=== PATIENT | female | born 1945 | race Caucasian/White ===

== ENCOUNTER 2018-05-18 07:22 | Emergency (ER) | payer MEDICARE, OTHER ==
[2018-05-18 07:51] VITALS: BP 173/78
--- NOTE | 2018-05-18 07:52 | ED Physician Documentation ---
PD HPI SKIN - Stated complaint Stated Complaint: RASH ON BACK - Chief complaint Chief Complaint: General - History obtained from History obtained from: Patient - History of Present Illness Timing - onset: How many days ago (3-4) Timing - duration: Days Timing - details: Gradual onset (has pain in back and around to chest 3-4 days ago, which increased, then started with some rash in that area couple days ago. The rash has increased. It has stayed in local area. She does have some general malaise/myalgias.), Still present Location: Chest, Back (right sided back around to chest) Quality / character: Painful, Vesicular, Swelling. No: Crusted, Draining Associated symptoms: Myalgias. No: Fever, Headache, N/V/D Contributing factors: No: Recent illness Similar symptoms before: Has not had sx before Recently seen: Not recently seen Review of Systems Constitutional: reports: Myalgias. denies: Fever, Chills Nose: denies: Rhinorrhea / runny nose, Congestion Throat: denies: Sore throat Cardiac: denies: Palpitations, Pedal edema, Calf pain Respiratory: denies: Dyspnea, Cough GI: denies: Abdominal Pain, Nausea, Vomiting Skin: reports: Rash. denies: Abrasion (s) Musculoskeletal: denies: Neck pain, Back pain Neurologic: denies: Altered mental status, Headache PD PAST MEDICAL HISTORY - Past Medical History Cardiovascular: None Respiratory: None Neuro: None Endocrine/Autoimmune: None Derm: None - Present Medications Home Medications: Ambulatory Orders Medication Instructions Recorded Confirmed Amitriptyline HCl 50 mg PO QPM #30 tablet 05/18/18 Dexamethasone [Decadron] 4 mg PO DAILY #7 tablet 05/18/18 HYDROcod/ACETAM 5/325 [Easley 5/325] 1 tab PO Q6H PRN #25 tablet 05/18/18 Valacyclovir HCl [Valacyclovir] 1,000 mg PO TID #21 tablet 05/18/18 - Allergies Allergies/Adverse Reactions: Allergies Allergy/AdvReac Type Severity Reaction Status Date / Time Penicillins Allergy Rash Verified 05/18/18 07:52 Sulfa (Sulfonamide Allergy Rash Verified 05/18/18 07:51 Antibiotics) PD ED PE NORMAL - Vitals Vital signs reviewed: Yes - General General: Alert and oriented X 3, Well developed/nourished - Neck Neck: Supple, no meningeal sign, No adenopathy - Cardiac Cardiac: RRR, No murmur - Respiratory Respiratory: Clear bilaterally - Abdomen Abdomen: Soft, Non tender - Derm Derm: Normal color, Warm and dry, Other (right thoracic area at T6 level with right sided red-based, vesicular rash that extends in band around to midline front at lower sternal level. Very tender. No signs of purulence. No redness outside of that band area. No rash to the left. ) - Neuro Neuro: Alert and oriented X 3, No motor deficit, No sensory deficit, Normal speech Results - Vitals Vitals: Vital Signs - 24 hr 05/18/18 07:45 Temperature 36.6 C Heart Rate 88 Respiratory 16 Rate Blood Pressure 173/78 H O2 Saturation 100 Oxygen O2 Source Room air PD MEDICAL DECISION MAKING - ED course Complexity details: considered differential (rash classically c/w shingles swatch, withut signs of secondary infection), d/w patient - Sepsis Event Vital Signs: Vital Signs - 24 hr 05/18/18 07:45 Temperature 36.6 C Heart Rate 88 Respiratory 16 Rate Blood Pressure 173/78 H O2 Saturation 100 Oxygen O2 Source Room air Departure - Departure Disposition: 01 Home, Self Care Clinical Impression: Shingles outbreak Qualifiers: Herpes zoster complications: without complications Qualified Code(s): B02.9 - Zoster without complications Condition: Stable Record reviewed to determine appropriate education?: Yes Instructions: ED Shingles Prescriptions: Amitriptyline HCl 50 mg PO QPM #30 tablet Dexamethasone [Decadron] 4 mg PO DAILY #7 tablet HYDROcod/ACETAM 5/325 [Easley 5/325] 1 tab PO Q6H PRN #25 tablet PRN Reason: Pain Valacyclovir HCl [Valacyclovir] 1,000 mg PO TID #21 tablet Comments: Cleanse the rash area with soap and water daily or twice daily. It is okay to apply topical ointments. Radha acyclovir antiviral medicine 3 times a day for a week. Decadron steroid anti-inflammatory daily for a week. Amitriptyline nightly for several weeks to try to reduce the nerve irritation overall. Add Tylenol or hydrocodone if needed for pains. You can add naproxen or ibuprofen as well. This should peak in severity over the next couple of days and then slowly taper down over 4-6 weeks. Follow-up with your primary care if not in starting to improve over the next week or so. Discharge Date/Time: 05/18/18 08:23
[2018-05-18] MEDS ORDERED: DEXAMETHASONE 10 MG/ML VIAL PO STA (08:09)
[2018-05-18] MEDS ORDERED: HYDROcod/ACETAM 5/325 MG TABLET PO STA (08:09)
== END 2018-05-18 08:23 | disposition home or self-care (01) ==
LOC: ED 07:22
DX: B02.9 Zoster without complications (principal)
CPT/HCPCS: 99283; A9270